=== PATIENT | female | born 1945 ===

== ENCOUNTER 2017-11-13 10:33 | Day surgery (SDC) | payer OTHER | END 2017-11-13 17:35 | disposition home or self-care (01) | LOC: AMB-ENDOS 10:33 | DX: D12.2 Benign neoplasm of ascending colon (principal); K64.1 Second degree hemorrhoids ==

== ENCOUNTER 2018-02-11 12:30 | Inpatient (IN) | payer OTHER ==
[~2018-02-11] VITALS: Ht 152.4 cm; Wt 63.5 kg
[2018-02-15] MEDS ORDERED: FORTAMET1000 MG PO (14:26)
[2018-02-15] MEDS ORDERED: COZAAR100 MG PO (14:26)
[2018-02-15] MEDS ORDERED: PROPRANOLOL HCL80 M1 PO (14:26)
[2018-02-15] MEDS ORDERED: RAYOS5 MG PO (14:27)
== END 2018-02-19 19:13 | disposition home or self-care (01) | DRG 330 ==
LOC: O/R 02-16 05:45 → SURG 02-16 05:45 → SURH 02-16 12:00 → SURG 02-16 17:34
PROVIDERS: Colon & Rectal Surgery
PROC: 07TC4ZZ Resection of Pelvis Lymphatic, Percutaneous Endoscopic Approach (ICD-10-PCS; 2018-02-16)
PROC: 0DBU4ZZ Excision of Omentum, Percutaneous Endoscopic Approach (ICD-10-PCS; 2018-02-16)
PROC: 0DTL4ZZ Resection of Transverse Colon, Percutaneous Endoscopic Approach (ICD-10-PCS; principal; 2018-02-16 05:30)
DX: D12.2 Benign neoplasm of ascending colon (principal); D62 Acute posthemorrhagic anemia; I10 Essential (primary) hypertension; E11.9 Type 2 diabetes mellitus without complications; K21.9 Gastro-esophageal reflux disease without esophagitis; M06.89 Other specified rheumatoid arthritis, multiple sites; Z86.010 Personal history of colon polyps

== ENCOUNTER 2023-11-09 10:22 | Outpatient (CLI) | payer OTHER ==
[~2023-11-09 10:22] MED LIST: COZAAR100 MG PO; FORTAMET1000 MG PO; PROPRANOLOL HCL80 M1 PO; RAYOS5 MG PO
== END 2023-11-09 10:29 | disposition home or self-care (01) ==
LOC: SONOGRAMA 10:22
PROVIDERS: ATTEND Pathology Anatomic Pathology & Clinical Pathology
DX: D34 Benign neoplasm of thyroid gland (principal); E07.89 Other specified disorders of thyroid; E04.2 Nontoxic multinodular goiter